=== PATIENT | male | born 1945 | race Caucasian/White ===

== ENCOUNTER 2024-06-14 13:40 | Outpatient (AMB) | payer MEDICARE, BC, SELFPAY ==
--- OUTSIDE RECORDS SUMMARY | 2024-06-14 13:42 | XMS_ITS | Continuity of Care Document ---
Author Organization [facility] Address [address] [place] [address]- Care Team Providers Care Food Preparation Supervisor Name Role Phone Favian Hu MD Primary Care Physician [id number] Date(s): 01/28/24 - 05/27/24 [facility] [address] [place] [address]- Attending Physician: Bettie Sultana MD Admitting Physician: Bettie Sultana MD Referring Physician: Bettie Sultana MD Encounter Type: Pre-Outpt Allergies, Adverse Reactions, Alerts No Known Allergies Medications aspirin 81 mg oral enteric coated tablet 1 tablet = 81 mg, By Mouth, Daily, 0 Refills, Maintenance, 05/12/13 9:52:58 AM EST Start Date: 05/12/13 Status: Ordered Repeat number: 1 atorvastatin 80 mg oral tablet = 80 mg, By Mouth, Daily at bedtime, 0 Refills, Maintenance, 09/05/14 10:12:54 AM EDT, Tablet Start Date: 09/05/14 Status: Ordered Repeat number: 1 cetirizine 10 mg oral tablet 10 Unknown, Oral, 0 Refill(s), Take 10 mg by mouth daily as needed for allergies., 0 Refills, 01/25/24 3:33:00 PM EDT, Partial fill upon patient request if the prescription is for a schedule II opioiddrug. Start Date: 01/25/24 Status: Ordered Repeat number: 1 clopidogrel 75 mg oral tablet = 75 mg, By Mouth, Daily, 0 Refills, Maintenance, 09/05/14 10:13:11 AM EDT, Tablet Start Date: 09/05/14 Status: Ordered Repeat number: 1 Fish Oil By Mouth, 0 Refills, Maintenance, 09/04/14 9:26:40 AM EDT Start Date: 09/04/14 Status: Ordered Repeat number: 1 LORazepam 0.5 mg oral tablet 1 each, 0 Refill(s), 0 Refills, 01/25/24 3:33:00 PM EDT, Partial fill upon patient request if the prescription is for a schedule II opioid drug. Start Date: 01/25/24 Status: Ordered Repeat number: 1 metoprolol 25 mg oral tablet 25 Unknown, Oral, 3 Refill(s), Take 1 tablet (25 mg total) by mouth 2 (two) times a day., Refills 0, 03/17/23 8:00:00 PM EDT, Partial fill upon patient request if the prescription is for a schedule IIopioid drug. Start Date: 03/17/23 Status: Ordered Repeat number: 1 Metoprolol Tartrate 25 mg oral tablet 1 tablet = 25 mg, By Mouth, 2 times a day, # 180 tablet, 0 Refills, Maintenance, 09/04/14 9:26:14 AMEDT, Tablet Start Date: 09/04/14 Status: Ordered Quantity: 180.0 Unit: tablet Repeat number: 1 Nitroglycerin 0.4mg Sublingual Tablet 0 Refills, Maintenance, 09/04/14 9:27:02 AM EDT Start Date: 09/04/14 Status: Ordered Repeat number: 1 oxyCODONE 5 mg oral tablet 5 Unknown, Oral, 0 Refill(s), Take 1 tablet (5 mg total) by mouth every 4 (four) hours as needed. Partial fill ok, Refills 0, 04/10/23 8:00:00 PM EDT, Partial fill upon patient request if the prescription is for a schedule II opioid drug. Start Date: 04/10/23 Status: Ordered Repeat number: 1 Problem List Condition Confirmation Course Effective Dates Status Health St atus Informant Abnormal ECG Confirmed Active Social History Social History Type Response Smoking Status Never smoker entered on: 09/05/14 Sex Sex Representation Male (finding) Patient Care team information Care Team Personnel Name: Favian Hu MD Position: Reference Physician Member Role: PCP Address: [address] [place] [address] Telecom: Care Team Related Persons Name: GERHARD KENNEY Insurance Providers Guarantor name: ANNE MARIE DELCID [employer] Plan Information #: 2 Payer: [employer] Member Number: [id number] Policy Number: NA Group Number: [id number] Health Plan Information #: 1 Payer: MEDICARE PART B OUTPT Member Number: [id number] Policy Number: NA Group Number: NA
--- OUTSIDE RECORDS SUMMARY | 2024-06-14 13:42 | XMS_ITS | Continuity of Care Document ---
Author Organization [facility] Address [address] [place] [address]- Care Team Providers Care Radio Message Router Name Role Phone Mayte ROLON, Favian Primary Care Phys[id number] Date(s): 04/28/24 - 05/28/24 [facility] [address] [address]- Attending Physician: Clarence Kaplan Admitting Physician: Clarence Kaplan Referring Physician: AdmtrClarence Encounter Type: Triage Allergies, Adverse Reactions, Alerts No Known Allergies [...] Position: Reference Physician Member Role: PCP Address: [address] [place] [address] Telecom: Care Team Related Persons Name: GERHARD KENNEY Insurance Providers Guarantor name: [facility] Plan Information #: 1 Payer: MEDICARE PART B OUTPT Member Number: NA Policy Number: NA Group Number: NA Health Plan Information #: 2 Payer: [employer]UE [employer]ARE SUPPL Member Number: NA Policy Number: NA Group Number: NA
--- OUTSIDE RECORDS SUMMARY | 2024-06-14 13:42 | XMS_ITS | Continuity of Care Document ---
Author Organization [facility] Address [address] [place] [address]- Care Team Providers Care Mouse Breeder Name Role Phone Favian Hu MD Primary Care Physician [id number] Date(s): 05/29/24 - 06/05/24 [facility] [address] [place] [address]- Attending Physician: Bettie Sultana MD Admitting Physician: Bettie Sultana MD Referring Physician: Favian Hu MD Encounter Type: Office Visit Allergies, Adverse Reactions, Alerts No Known Allergies [...] Date: 09/04/14 Status: Ordered Repeat number: 1 lisinopril 20 mg oral tablet 90 each, 0 Refill(s), Refills 0, 05/29/24 3:48:00 PM EST, Partial fill upon patient request if the prescription is for a schedule II opioid drug. Start Date: 05/29/24 Status: Ordered Repeat number: 1 LORazepam 0.5 [...] St atus Informant Abnormal ECG Confirmed Active Vital Signs Most recent to oldest [Reference Range]: 1 Height 182.88 cm (05/29/24 3:47 PM) Weight 95 kg (05/29/24 3:47 PM) Oxygen Saturation [94-100 %] 98 % (05/29/24 3:47 PM) Pulse Rate [55-90 bpm] 84 bpm (05/29/24 3:47 PM) Body Mass Index [18.5-24.99 kg/m2] 28.4 kg/m2 *H* (05/29/24 3:47 PM) Blood Pressure [90-138/55-84 mm Hg] 108/ 74mm Hg (05/29/24 3:47 PM) Mode of Delivery (Oxygen) Room air (05/29/24 3:47 PM) Blood pressure sites Arm, right (05/29/24 3:47 PM) Social History Social History Type Response Smoking Status Never smoker entered on: 09/05/14 Sex Sex Representation Male (finding) Patient Care team information Care Team Personnel Name: Favian Hu MD Position: Reference Physician Member Role: PCP Address: [address] [place] [address] Telecom: Care Team Related Persons Name: GERHARD KENNEY Insurance Providers Guarantor name: ANNE MARIE DELCID Health Plan Information #: 1 Payer: MEDICARE PART B OUTPT Member Number: [id number] Policy Number: NA Group Number: ARLINE Health Plan Information #: 2 Payer: [employer] Member Number: [id number] Policy Number: NA Group Number: [id number]
--- OUTSIDE RECORDS SUMMARY | 2024-06-14 13:42 | XMS_ITS | Continuity of Care Document ---
Author Organization [facility] Address [address] [place] [address]- Care Team Providers Care Bung Driver Name Role Phone Mayte ROLON, Favian Primary Care Physician [facility] [id number] Date(s): 04/27/24 - 05/27/24 [facility] [address] [place] [address]- Attending Physician: Clarence Kaplan Admitting Physician: Clarence Kaplan Referring Physician: AdmClarence zuniga Encounter Type: Triage Allergies, Adverse Reactions, Alerts [...] Position: Reference Physician Member Role: PCP Address: [address] [place] [address] Telecom: Care Team Related Persons Name: GERHARD KENNEY Insurance Providers Guarantor name: ANNE MARIE DELCID [employer] Information #: 1 Payer: MEDICARE PART B OUTPT Member Number: NA Policy Number: NA Group Number: NA Health Plan Information #: 2 Payer: [employer]UE [employer] SUPPL Member Number: NA Policy Number: NA Group Number: NA
--- NOTE | 2024-06-14 13:46 | MHC.OFFVIS ---
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 The patient describes his shoulder pain as achy in nature. He did aggravate his right shoulder several weeks ago while at the dentist. He reports mild weakness when lifting his right hand above shoulder height. He has had cortisone injections given into his knee and shoulder in the past. Those injections gave him no relief. He has tried Tylenol and anti-inflammatory medicines which gave him minimal relief. The patient has failed the last 3 months of conservative treatment for his left knee which have consisted of topical creams, Tylenol, anti-inflammatory medicines and physical therapy exercises. The patient states that his left knee pain is now interfering with his activities of daily living and his ability to sleep well through the night. Allergies No Known Allergies Allergy (Verified 06/14/24 14:11) Medication List - Last Reviewed 06/14/24 by BEAR Ann aspirin 81 mg PO DAILY atorvastatin 80 mg PO DAILY cetirizine (Zyrtec) 10 mg PO DAILY PRN lisinopril 20 mg PO DAILY metoprolol tartrate 25 mg PO BID Physical Exam Vital Signs: BMI result Body Mass Index 28.5 Const Other: Well-nourished well-developed very friendly male awake alert and oriented x3 in no acute distress Extrem Other: Right shoulder examination shows slightly decreased range of motion when compared to his left shoulder, 4+ out of 5 strength with supraspinatus testing, positive impingement signs, tenderness over his acromioclavicular joint, no instability Left knee examination shows a minimal effusion, palpable crepitus with range of motion, pain with range of motion, range of motion from -3 degrees to 115 degrees, no instability Results Reviewed Results Reviewed: X-rays of the patient's left knee taken today show moderate to severe joint space narrowing most significant in the medial compartment, subchondral sclerosis, no acute bony abnormalities X-rays of the patient's right shoulder taken today show severe acromioclavicular joint narrowing, a type 2 acromion, no acute bony abnormalities Assessment & Plan Assessment & Plan (1) Left knee pain: Code(s): M25.562 - Pain in left knee Category: Medical (2) Right shoulder pain: Code(s): M25.511 - Pain in right shoulder Category: Medical (3) Osteoarthritis of left knee: Code(s): M17.12 - Unilateral primary osteoarthritis, left knee Category: Medical Plan Mr. Harvey presents with progressively worsening left knee pain due to osteoarthritis. I will see whether or not the patient's insurance company will cover a series of viscosupplementation injections. He also has right shoulder pain due to impingement syndrome. At this point his right shoulder pain is tolerable to him. He will continue with his range motion exercises. I will see him back once the viscosupplementation injections are available. Feel free to call me at any time should questions regarding his orthopedic management arise. Thank you very much for asking me to see this very friendly gentleman. I spent 22 minutes in reviewing the patient's records and imaging studies, seeing the patient and documenting in the medical record. Orders: Orders XR knee LT 3V Today M25.562 - Pain in left knee XR shoulder RT min 2V Today M25.511 - Pain in right shoulder Coding Level of Care Code New Pt Level 3 (42493) Complex EM visit Add On G2211 Diagnoses Left knee pain M25.562 Right shoulder pain M25.511 Osteoarthritis of left knee M17.12
[2024-06-14 14:10] VITALS: BMI 28.5
== END 2024-06-14 14:41 | disposition home or self-care (01) ==
PROVIDERS: Visit Provider Orthopaedic Surgery
DX: M25.562 Pain in left knee (principal); M25.511 Pain in right shoulder; M17.12 Unilateral primary osteoarthritis, left knee
CPT/HCPCS: 99203; G2211

== ENCOUNTER 2024-06-14 14:29 | Outpatient (REF) | payer MEDICARE, BC, SELFPAY | END 2024-06-14 14:30 | disposition home or self-care (01) | LOC: HO.HOSX 14:29 | PROVIDERS: Visit Provider Orthopaedic Surgery | DX: M25.562 Pain in left knee (principal); M25.511 Pain in right shoulder; M17.12 Unilateral primary osteoarthritis, left knee | CPT/HCPCS: 73030; 73562; 99202 ==

== ENCOUNTER 2024-06-22 08:26 | Outpatient (AMB) | payer MEDICARE, BC, SELFPAY ==
[2024-06-22 08:35] VITALS: BMI 28.5
--- NOTE | 2024-06-22 08:35 | A.OFFVIS_ITS ---
Vital Signs 06/22/24 08:35 Height 6 ft Weight 210 lb BMI 28.5 Intake Visit Reasons: Inj- Left Knee Durolane Inj Intake Note: Jose Daniel is a 79 year old male who presents to the office for a left knee Durolane injection. He describes his left knee pain as sharp in nature. He has had cortisone injections in the past which gave him minimal relief. He has also done physical therapy which aggravated his pain. He has tried Tylenol and anti- inflammatory medicines which gave him minimal relief. He wishes to hold off on total knee replacement surgery for as long as possible. Allergies No Known Allergies Allergy (Verified 06/22/24 08:41) Medication List - Last Reconciled 06/22/24 by Luis Morocho MD aspirin 81 mg PO DAILY atorvastatin 80 mg PO DAILY cetirizine (Zyrtec) 10 mg PO DAILY PRN lisinopril 20 mg PO DAILY metoprolol tartrate 25 mg PO BID Physical Exam Vital Signs: BMI result Body Mass Index 28.5 Const Other: Well-nourished well-developed very friendly male awake alert and oriented x3 in no acute distress Extrem Other: Bilateral lower extremity examination shows good capillary refill, no skin lesions noted, normal sensation light touch Left knee examination shows a minimal effusion, palpable crepitus with range of motion, pain with range of motion, no instability Office Procedures AMB Joint Injection/Aspiration Joint Injection/Aspiration Primary Site: left knee Prep: site was prepped using aseptic technique Injected: 60 mg of (Durolane viscosupplementation) and 1% plain lidocaine Procedure: The patient tolerated the procedure well Coding 88081 - Large joint Procedure code (CPT) selection complete Results Reviewed Results Reviewed: X-rays of the patient's left knee taken previously show joint space narrowing, subchondral sclerosis, no acute bony abnormalities Assessment & Plan Assessment & Plan (1) Osteoarthritis of left knee: Code(s): M17.12 - Unilateral primary osteoarthritis, left knee Category: Medical Plan Mr. Harvey presents with progressively worsening left knee pain due to osteoarthritis. The risks and benefits of a Durolane viscosupplementation injection were discussed at length with the patient. The patient wished to proceed. He tolerated the injection well. He will continue with his home exercise program. He will contact me prior to his follow-up appointment in 2-3 months should any questions or concerns arise. Feel free to call me at any time should questions regarding his orthopedic management arise. I spent 22 minutes in reviewing the patient's records and imaging studies, s eeing the patient and documenting in the medical record. Orders: Orders AMB Joint Injection/Aspiration Today M17.12 - Unilateral primary osteoarthritis, left knee Coding Level of Care Code Est Pt Level 3 (20171) Complex EM visit Add On G2211 Diagnoses Osteoarthritis of left knee M17.12 CPT Codes Coding - 93576 Large joint: 71053 - Large joint ([id number])
== END 2024-06-22 08:56 | disposition home or self-care (01) ==
PROVIDERS: Visit Provider Orthopaedic Surgery
DX: M17.12 Unilateral primary osteoarthritis, left knee (principal)
CPT/HCPCS: 20610; 99213

== ENCOUNTER → 2024-06-22 08:26 | Outpatient (BNVA) | payer MEDICARE, BC, SELFPAY | PROVIDERS: Visit Provider Orthopaedic Surgery | DX: M17.12 Unilateral primary osteoarthritis, left knee (principal) | CPT/HCPCS: 20610; 99212; J2003; J7318 ==

== ENCOUNTER 2024-09-21 11:18 | Outpatient (AMB) | payer MEDICARE, BC, SELFPAY ==
[2024-09-21 11:21] VITALS: BMI 28.5
--- NOTE | 2024-09-21 11:21 | MHC.OFFVIS ---
Vital Signs 09/21/24 11:21 09/21/24 11:25 Height 6 ft 6 ft Weight 210 lb 210 lb BMI 28.5 28.5 Intake Visit Reasons: Left knee pain, Right shoulder pain and weakness Intake Note: Jose Daniel is a 79 year old male who presents with complaints of progressively worsening right shoulder pain and weakness. The patient states that he injured his right shoulder approximately 1 year ago while lifting a heavy object. Since that time he has had difficulty lifting his right hand above shoulder height. He has had cortisone injections in the past which gave him minimal relief. He has also done physical therapy exercises which aggravated his pain. He has failed the last 6 weeks of conservative treatment which has included a home exercise program, Tylenol and anti-inflammatory medicines. The patient also has progressively worsening left knee pain. He has had Durolane viscosupplementation injections in the past which gave him good relief. He has had cortisone injections given into his left knee which gave him no relief. He wishes to hold off on surgery if at all possible. Allergies No Known Allergies Allergy (Verified 09/21/24 11:25) Medication List - Last Reconciled 09/21/24 by Luis Morocho MD aspirin 81 mg PO DAILY atorvastatin 80 mg PO DAILY cetirizine (Zyrtec) 10 mg PO DAILY PRN lisinopril 20 mg PO DAILY metoprolol tartrate 25 mg PO BID Physical Exam Vital Signs: BMI result Body Mass Index 28.5 Const Other: Well-nourished well-developed very friendly male awake alert and oriented x3 in no acute distress Extrem Other: Right shoulder examination shows slightly decreased range of motion when compared to his left shoulder, 4+ out of 5 strength with supraspinatus testing, positive impingement signs, no instability Left knee examination shows a mild effusion, palpable crepitus with range of motion, pain with range of motion, no instability Results Reviewed Results Reviewed: X-rays of the patient's right shoulder taken previously show severe acromioclavicular joint space narrowing, a type 2 acromion, no acute bony abnormalities X-rays of the patient's left knee taken previously show joint space narrowing, subchondral sclerosis, no acute bony abnormalities Assessment & Plan Assessment & Plan (1) Rotator cuff insufficiency of right shoulder: Code(s): M25.311 - Other instability, right shoulder Category: Medical (2) Left knee pain: Code(s): M25.562 - Pain in left knee Category: Medical (3) Osteoarthritis of left knee: Code(s): M17.12 - Unilateral primary osteoarthritis, left knee Category: Medical Plan Mr. Harvey presents with right shoulder pain and weakness due to impingement syndrome and possible rotator cuff tearing. Thus, I will send the patient for an MRI of his right shoulder for further evaluation. I will call him by phone once the MRI results are available. I will also see whether or not the patient's insurance company will cover a another Durolane viscosupplementation injection. I will see him back once the injection is available. Feel free to call me at any time should questions regarding his orthopedic management arise. I spent 20 minutes in reviewing the patient's records and imaging studies, seeing the patient and documenting in the medical record. Orders: Orders MR shoulder RT wo con Today M25.311 - Other instability, right shoulder Medications: New lorazepam (Ativan) Take one tab 2 hours before your MRI; take the second tab 30 minutes before your MRI 1 mg PO ONCE 2 tabs 0RF Coding Level of Care Code Est Pt Level 3 (13358) Complex EM visit Add On G2211 Diagnoses Rotator cuff insufficiency of right shoulder M25.311 Left knee pain M25.562 Osteoarthritis of left knee M17.12
[2024-09-21 11:25] VITALS: BMI 28.5
== END 2024-09-21 11:42 | disposition home or self-care (01) ==
LOC: HO.HOS 11:18
PROVIDERS: Visit Provider Orthopaedic Surgery
DX: M25.311 Other instability, right shoulder (principal); M75.41 Impingement syndrome of right shoulder; M17.12 Unilateral primary osteoarthritis, left knee
CPT/HCPCS: 99213; G2211

== ENCOUNTER → 2024-09-21 11:18 | Outpatient (BNVA) | payer MEDICARE, BC, SELFPAY | PROVIDERS: Visit Provider Orthopaedic Surgery | DX: M25.311 Other instability, right shoulder (principal); M25.562 Pain in left knee; M17.12 Unilateral primary osteoarthritis, left knee | CPT/HCPCS: 99212 ==

== ENCOUNTER 2024-10-26 14:25 | Outpatient (AMB) | payer MEDICARE, BC, SELFPAY ==
--- NOTE | 2024-10-26 14:25 | MHC.OFFVIS ---
Intake Visit Reasons: Tel- Right shoulder MRI review Intake Note: Jose Daniel is a 79 year old male who complains of right shoulder pain and weakness. The patient notices the pain mostly when he is trying to sleep. He has tried physical therapy exercises which aggravated his pain. He reports mild weakness when lifting his right hand above shoulder height. He is due to get Durolane viscosupplementation injections into both of his knees over the next few months. Allergies No Known Allergies Allergy (Verified 10/26/24 14:25) Medication List - Last Reconciled 10/26/24 by Luis Morocho MD aspirin 81 mg PO DAILY atorvastatin 80 mg PO DAILY cetirizine (Zyrtec) 10 mg PO DAILY PRN lisinopril 20 mg PO DAILY metoprolol tartrate 25 mg PO BID Physical Exam Const Other: No examination today because it is a telemedicine appointment. Telehealth Telehealth Telehealth Platform: Telephone Location of provider rendering services: practice address Location of patient: address on file Patient Identification confirmed using: Name, : Yes Telehealth method: voice only Patient verbally consented to treatment: Yes Patient verbally consented to billing insurance company: Yes Patient informed of any privacy concerns related to visit: Yes Minutes spent on Phone/Video with Pt.: 14 Results Reviewed Results Reviewed: MRI of the patient's right shoulder show severe acromioclavicular joint narrowing, a type 2 acromion, a full-thickness tear of the supraspinatus tendon Assessment & Plan Assessment & Plan (1) Rotator cuff insufficiency of right shoulder: Code(s): M25.311 - Other instability, right shoulder Category: Medical Plan Mr. Harvey presents with intermittent right shoulder pain and weakness due to impingement syndrome, acromioclavicular joint arthritis and a supraspinatus tendon tear. I had a lengthy discussion with the patient regarding the treatment options. At this point the patient's symptoms are tolerable to him. The do's and don'ts of lifting were discussed at length with the patient. The patient is aware that his tear can become larger in size and even irreparable over time. We will further discuss treatment options when he comes into the office for his Durolane viscosupplementation injections over the next few months. He will contact me prior to that time should his symptoms worsen in any way. Feel free to call me at any time should questions regarding his orthopedic management arise. Coding Level of Care Code Est Pt Level 3 (02364) Complex EM visit Add On G2211 Diagnoses Rotator cuff insufficiency of right shoulder M25.311
== END 2024-10-26 14:34 | disposition home or self-care (01) ==
LOC: HO.HOS 14:25
PROVIDERS: PCP Family Medicine; Visit Provider Orthopaedic Surgery
DX: M25.311 Other instability, right shoulder (principal)
CPT/HCPCS: 99213; G2211

== ENCOUNTER → 2024-10-26 14:25 | Outpatient (BNVA) | payer MEDICARE, BC, SELFPAY | PROVIDERS: PCP Family Medicine; Visit Provider Orthopaedic Surgery ==

== ENCOUNTER 2024-12-28 10:57 | Outpatient (AMB) | payer MEDICARE, BC, SELFPAY ==
[2024-12-28 11:05] VITALS: BMI 28.5
--- NOTE | 2024-12-28 11:05 | MHC.OFFVIS ---
Vital Signs 12/28/24 11:05 Height 6 ft Weight 210 lb BMI 28.5 Intake Visit Reasons: Inj-Left Knee Durolane Inj-Last 06/22/24 Intake Note: Jose Daniel is a 79 year old male who presents today for a left knee Durolane gel injection. He describes his knee pain as sharp in nature. He has tried cortisone injections in the past which gave him minimal relief. He has also had Durolane viscosupplementation which gave him good relief. He wishes to hold off on surgery if at all possible. Allergies No Known Allergies Allergy (Verified 12/28/24 11:06) Medication List - Last Reconciled 12/28/24 by Luis Morocho MD aspirin 81 mg PO DAILY atorvastatin 80 mg PO DAILY cetirizine (Zyrtec) 10 mg PO DAILY PRN lisinopril 20 mg PO DAILY metoprolol tartrate 25 mg PO BID Physical Exam Vital Signs: BMI result Body Mass Index 28.5 Extrem Other: Left knee examination shows a minimal effusion, palpable crepitus with range of motion, pain with range of motion, no instability Office Procedures AMB Joint Injection/Aspiration Joint Injection/Aspiration Primary Site: left knee Prep: site was prepped using aseptic technique Injected: 60 mg of (Durolane viscosupplementation) and 1% plain lidocaine Procedure: The patient tolerated the procedure well Coding 43555 - Large joint Procedure code (CPT) selection complete Assessment & Plan Assessment & Plan (1) Osteoarthritis of left knee: Code(s): M17.12 - Unilateral primary osteoarthritis, left knee Category: Medical Plan Mr. Harvey presents with left knee pain due to osteoarthritis. The risks and benefits of a Durolane viscosupplementation injection were discussed at length with the patient. The patient wished to proceed. He tolerated the injection well. He will continue with his home exercise program. He will contact me prior to his follow-up appointment in 3 months should any questions or concerns arise. Feel free to call me at any time should questions regarding his orthopedic management arise. I spent 22 minutes in reviewing the patient's records and imaging studies, seeing the patient and documenting in the medical record. Orders: Orders AMB Joint Injection/Aspiration Today M17.12 - Unilateral primary osteoarthritis, left knee Coding Level of Care Code Est Pt Level 3 (07354) Complex EM visit Add On G2211 Diagnoses Osteoarthritis of left knee M17.12 CPT Codes Coding - 00056 Large joint: 54790 - Large joint ([id number])
== END 2024-12-28 11:24 | disposition home or self-care (01) ==
LOC: HO.HOS 10:57
PROVIDERS: PCP Family Medicine; Visit Provider Orthopaedic Surgery
DX: M17.12 Unilateral primary osteoarthritis, left knee (principal)
CPT/HCPCS: 20610; 99213

== ENCOUNTER → 2024-12-28 10:57 | Outpatient (BNVA) | payer MEDICARE, BC, SELFPAY | PROVIDERS: PCP Family Medicine; Visit Provider Orthopaedic Surgery | DX: M17.12 Unilateral primary osteoarthritis, left knee (principal); Z79.82 Long term (current) use of aspirin; Z79.899 Other long term (current) drug therapy | CPT/HCPCS: 20610; 99212; J2003; J7318 ==

== ENCOUNTER 2025-04-05 11:21 | Outpatient (AMB) | payer MEDICARE, BC, SELFPAY ==
--- NOTE | 2025-04-05 11:31 | MHC.OFFVIS ---
Vital Signs 04/05/25 11:32 Height 6 ft Weight 210 lb BMI 28.5 Intake Visit Reasons: Right shoulder pain and weakness, Left knee pain Intake Note: Jose Daniel is a 79 year old man who presents with complaints of progressively worsening right shoulder pain and weakness as well as left knee pain. The patient injured his right shoulder approximately 1 year ago while lifting a heavy object. Since that time his symptoms have gotten worse. He reports weakness when lifting his right hand above shoulder height. Has tried physical therapy exercises which aggravated his pain. He has also tried Tylenol and anti-inflammatory medicines which gave him minimal relief. The patient describes his left knee pain as sharp in nature. He has had cortisone injections in the past which gave him no relief. He has also had viscosupplementation injections which gave him fairly good relief. He wishes to hold off on knee replacement surgery if at all possible. Allergies No Known Allergies Allergy (Verified 04/05/25 11:36) Medication List - Last Reconciled 04/05/25 by Luis Morocho MD aspirin 81 mg PO DAILY atorvastatin 80 mg PO DAILY cetirizine (Zyrtec) 10 mg PO DAILY PRN lisinopril 20 mg PO DAILY metoprolol tartrate 25 mg PO BID Physical Exam Vital Signs: BMI result Body Mass Index 28.5 Const Other: Well-nourished well-developed very friendly male awake alert and oriented x3 in no acute distress Extrem Other: Right shoulder examination shows decreased range of motion when compared to his left shoulder, 4/5 strength with supraspinatus testing, positive impingement signs, tenderness over his acromioclavicular joint, no instability Left knee examination shows a minimal effusion, palpable crepitus with range of motion, pain with range of motion Results Reviewed Results Reviewed: MRI of the patient's right shoulder show severe acromioclavicular joint narrowing, a type 2 acromion, a full-thickness tear of the supraspinatus tendon X-rays of the patient's left knee taken previously show joint space narrowing, subchondral sclerosis, no acute bony abnormalities Assessment & Plan Assessment & Plan (1) Left knee pain: Code(s): M25.562 - Pain in left knee Category: Medical (2) Osteoarthritis of left knee: Code(s): M17.12 - Unilateral primary osteoarthritis, left knee Category: Medical (3) Rotator cuff insufficiency of right shoulder: Code(s): M25.311 - Other instability, right shoulder Category: Medical Plan Mr. Harvey presents with right shoulder pain and weakness due to impingement syndrome, acromioclavicular joint arthritis and a full-thickness rotator cuff tear. I had a lengthy discussion with the patient regarding the treatment options. At this point he has failed continued non operative treatments. The risks and benefits of right shoulder surgery were discussed at length with the patient. The patient wishes to proceed with surgery. He will contact my office to pick a surgery date. Surgery will involve right shoulder arthroscopic distal clavicle excision, right shoulder arthroscopic acromioplasty and right shoulder mini open rotator cuff repair. I will also see if the patient's insurance company will cover another viscosupplementation injection for his left knee osteoarthritis. I will see him back once the injection is available. Feel free to call me at any time should questions regarding his orthopedic management arise. I spent 21 minutes in reviewing the patient's records and imaging studies, seeing the patient and documenting in the medical record. Coding Level of Care Code Est Pt Level 3 (46943) Complex EM visit Add On G2211 Diagnoses Left knee pain M25.562 Osteoarthritis of left knee M17.12 Rotator cuff insufficiency of right shoulder M25.311
[2025-04-05 11:32] VITALS: BMI 28.5
== END 2025-04-05 12:07 | disposition home or self-care (01) ==
LOC: HO.HOS 11:22
PROVIDERS: PCP Family Medicine; Visit Provider Orthopaedic Surgery
DX: M25.562 Pain in left knee (principal); M17.12 Unilateral primary osteoarthritis, left knee; M25.311 Other instability, right shoulder
CPT/HCPCS: 99214; G2211

== ENCOUNTER → 2025-04-05 11:21 | Outpatient (BNVA) | payer MEDICARE, BC, SELFPAY | PROVIDERS: PCP Family Medicine; Visit Provider Orthopaedic Surgery | DX: M25.562 Pain in left knee (principal); M17.12 Unilateral primary osteoarthritis, left knee; M25.311 Other instability, right shoulder; Z79.899 Other long term (current) drug therapy | CPT/HCPCS: 99212 ==